=== PATIENT | male | born 1945 | race Caucasian/White ===

== ENCOUNTER → 2023-04-13 | Outpatient (CLI) | payer OTHER, SELFPAY ==
--- NOTE | 2023-04-13 07:43 | CT_ITS ---
STUDY: CT SCAN OF THE ABDOMEN WITHOUT ORAL OR INTRAVENOUS CONTRAST. REASON FOR EXAM: Male, 77 years old. MASS IN PANCREAS RADIATION DOSAGE (If Supplied By Facility): CTDIvol = ( 28.34 ) mGy, DLP = ( 746.12 ) mGycm. Individualized dose optimization techniques were used for this CT.? TECHNIQUE: The patient was placed in the prone position. Due to the position of the mass in the tail the pancreas, access was not made possible due to overlying lung tissue. Lateral approach was planned although there is evidence of the descending colon. CT/Biopsy/Inj or Needle Placement IMPRESSION: The procedure was not performed due to the lack of safe access to the abnormality. Electronically Signed: Kris Will MD at 11:16 EST ,
--- OUTSIDE RECORDS SUMMARY | 2023-04-13 07:43 | XMS RPT_ITS | CCD ---
Author Name Unknown Address [address] [place] [address] Organization [facility] Care Team Providers [employer] Name Role Phone Marielena KNIGHT MD Unavailable BERLIN Unavailable Unavailable ANJU CABAN, LUIS ALFREDO Díaz Unavailable DERMATOLOGY, GENERAL Unavailable Unavailable Debora RN, Lucia Unavailable Unavailable ANJU CABAN, CALEB De Jesus Unavailable [phone] REGAN CAI Unavailable Unavailable MEI CABAN, STEFAN Tinoco Unavailable [phone] STAN GREGORIO-CIRINEO Unavailable [phone] Larissa BAILEY MD Unavailable PIA KNIGHT Unavailable Unavailable Taylor Del Castillo Unavailable Unavailable Sil Mclain Unavailable Unavailable Aman DAVIS, Aminta Unavailable Unavaila JAQUELINE Flores Unavailable Unavailable Unavailable Unavailable IRINEO PIERCE NP Consulting Unavailab le IRINEO PIERCE NP Primary Care Unavailab IRINEO Rod NP Admitting Unavailab le IRINEO PIERCE FORESTRY EXTENSION SPECIALIST Attending Unavailab le PROVIDER, UNKNOWN Consulting Unavailable PROVIDER, UNKNOWN Consulting Unavailable GORDON KNIGHT MD Consulting Unavailable IRINEO PIERCE NP Primary Care Unavailab IRINEO Rod NP Admitting Unavailab IRINEO Rod NP Attending Unavailab le PROVIDER, UNKNOWN Consulting Unavailable PROVIDER, UNKNOWN Consulting Unavailable PROVIDER, UNKNOWN Consulting Unavailable TU RIOS MD Attending Unavailable TU RIOS MD Primary Care Unavailable TU RIOS MD Admitting Unavailable IRINEO PIERCE FORESTRY EXTENSION SPECIALIST Consulting Unavailab le PROVIDER, UNKNOWN Consulting Unavailable PROVIDER, UNKNOWN Consulting Unavailable IRINEO PIERCE NP Primary Care Unavailab le STAN, IRINEO WOO Admitting Unavailab le STAN, IRINEO FORESTRY EXTENSION SPECIALIST Attending Unavailab le STAN, IRINEO FORESTRY EXTENSION SPECIALIST Consulting Unavailab le PROVIDER, UNKNOWN Consulting Unavailable PROVIDER, UNKNOWN Consulting Unavailable STAN, IRINEO WOO Primary Care Unavailab simran CAMILOAPRILCANDY, IRINEO FORESTRY EXTENSION SPECIALIST Admitting Unavailab le STAN, IRINEO FORESTRY EXTENSION SPECIALIST Attending Unavailab le CAMILOTECANDY, IRINEO FORESTRY EXTENSION SPECIALIST Consulting Unavailab le PROVIDER, UNKNOWN Consulting Unavailable PROVIDER, UNKNOWN Consulting Unavailable [facility] Attending Unavailable [facility] Primary Care Unavailable [facility] Admitting Unavailable GORDON KNIGHT MD Consulting Unavailable PROVIDER, UNKNOWN Consulting Unavailable PROVIDER, UNKNOWN Consulting Unavailable PROVIDER, UNKNOWN Consulting Unavailable LICO REED DO Unavailable TAYLOR DEL CASTILLO Unavailable Unavailable Medications Current Medications Medication Drug Class(es) Dates Sig (Normalized) Sig (Original) lisinopril 5 mg oral tablet (14 sources) Angiotensin Converting Enzyme Inhibitor Start: 03-28-2023 lisinopriL 5 mg tablet ; 1 (one) tablet daily for 30 days Quantity: 30 {Tablet} Refills: 3 Ordered: 28-Mar-2023 DULCE PIERCE Start: 28-Mar-2023 Completed/Discontinued Medications Medication Drug Class(es) Dates Sig (Normalized) Sig (Original) acetaminophen 500 mg / HYDROcodone bitartrate 5 mg oral tablet (14 sources) Opioid Agonist Start: 11-05-2010 End: 06-18-2013 take 1 tablet by mouth every six hours as needed VICODIN, 5-500MG (Oral Tablet) ; 1 (one) Tablet every six hours, as needed for 0 days Quantity: 25 {Tablet} Refills: 1 Ordered: 18-Jun-2013 MD LUIS ALFREDO RENE Start: 05-Nov-2010 End: 18-Jun-2013 Status: Discontinued Comments: Medication taken as needed. This order discontinued per -Span. 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 The test(s) that you had done were/was blood work and a PSA (blood test for prostate cancer). Your tests were not to goal You should call our office if you have any questions. Please follow up as scheduled. Note for !Patient notification of lab results : Your PSA was elevated. We can have you see a specialist for this or start you on medications. Also, your blood sugar was dangerously high at over 400. Start working on the diet and take your medication. In addition, your kidney function has declined. We will watch this closely. Thanks! 11-29-2022 Unclassified (14 sources) !Patient notification of lab results - Dr. Knight. Note for !Patient notification of lab results : Cheng, all your tests (including the 24 hour heart monitor results that I just got back) don't show any reason for your shortness of breath. Your heart monitor did show some extra beats, but that is not unusual at your age and shouldn't cause shortness of breath.If you are feeling better, or at least not worse, we can watch and see you do. If you are getting any worse though, the next thing I would do is pulmonary function test. That doesn't just see what your lungs look like (which is what the xray did), but how your lungs are actually working. It isn't a major test, so if you have any doubt let me know and we can schedule that.Let us know if you have any questions. 10-28-2020 Unclassified (14 sources) Cold Symptoms - Symptoms include productive cough, while symptoms do not include sore throat. Onset was gradual 3 day(s) ago. Associated symptoms include shortness of breath, while associated symptoms do not include plugged ear(s), ear pain or fever. 03-19-2016 Unclassified (14 sources) Diarrhea - The onset of the diarrhea has been sudden and has been occurring for 3 days. The course has been constant. The stools are watery and foul smelling. The symptoms have been associated with abdominal pain, joint pains, nausea, past history of abdominal surgery (Gallbladder and Kidney removal 2012) and weakness. Note for Diarrhea : 10 x/day 11-26-2015 Unclassified (14 sources) !Patient notification of lab results 1 - Kornhaus. The test(s) that you had done were/was blood work (Your potassium was slightly elevated at 5.1. Your kidney function is diminished but stable when compared to 07/2013. You should schedule a follow up in the next 6 weeks to further review your kidney situation and to decide if you should see a specialist for a consult regarding this. The lymphocyte count was slightly low. These are cells that help fight viral infections. They were not so low that I am concerned that you will have a problem with infection, but the count should be repeated in 3 months to be certain that it is stable). You should call our office if you have any questions. 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 Patient has tried multiple over the counter treatments and a couple prescription medications. Rash is red and itchy and is located on his both of his arms, legs, abdomen, and back. Here for exam. 03-08-2014 Unclassified (14 sources) !Patient notification of lab results 1 - Rene. The test(s) that you had done were/was a CBC (checks for anemia and infection) and a CMP (kidneys, liver, nutrition, sugar). The results of your testing were normal (Hopefully you are feeling better in the next few days. Let us know if you don't think there is any improvement.) . You should call our office if you have any questions. 07-20-2013 Unclassified (14 sources) Rash - The rash has been occurring for 4 weeks. The rash is characterized as red. The rash was first seen on the lower extremity. It spread to the upper extremity. There has been associated itching. Note for Rash : Seen on 06/18/13, given Lotrimin, no improvement. 07-19-2013 Unclassified (10 sources) Rash - The onset of the rash has been acute and has been occurring in a persistent pattern for weeks. The course has been increasing. The rash is characterized as red. The rash was first seen on the lower extremity (left ). It spread to the trunk, the back, the upper extremity and the lower extremity. There has been associated itching. 06-18-2013 Unclassified (10 sources) [ADDITIONAL REASON] cough - The onset of the cough has been acute and has been occurring in a persistent pattern for 4 days. The symptoms have been associated with wheezing. 06-18-2013 Unclassified (14 sources) Pre-Op Visit - The procedure scheduled is a Right Total Knee Replacement on 02/09/2011. The surgeon for the procedure will be Dr Mejia. Note for Pre-Op Visit : had bloodwork drawn per Dr Mejia on 12/23/2010 01-26-2011 Unclassified (14 sources) !Patient notification of lab results 1 - Dr. Rene. The test(s) that you had done were/was a panel of joint inflammation tests. The results of your testing were normal . Please note that we have included copies of your results and be aware that we have sent copies to Dr keven Mejia, clinical account specialist at [facility]. 12-25-2010 Unclassified (14 sources) Unspecified Diagnosis 11-05-2010 Unclassified (14 sources) Knee Pain - The onset of the knee pain has been acute and has been occurring for years. The knee pain is described as being located in the entire knee (RIGHT). Note for Knee Pain : C/O TINGLING IN BOTH FEET. SAW DR NOLBERTO KNIGHT SEVERAL YEARS AGO. ALSO HAD [address] INJECTIONS REC[address] ZAMARRIPA FROM [facility]. 2 HR PP GLUCOSE 134. FAMILY HX OF DIABETES.. 11-05-2010 Unclassified (10 sources) Follow-up after Hospitalization - The diagnosis of UTI. The patient reports feeling feels well with no complaints. The date of admission was 03-13-23 and date of discharge was 03-15-23. The hospitalization was at [facility]. New medicaitons include: bactrim and tamsulosin.. Discontinued medications include: metformin. Note for Follow-up after Hospitalization : pt was told to stop metformin due to pt having 1 kidney. Told to watch sugar in his diet. Pt checks sugars at home and has readings of 200+ the last couple days. Has not taken lisinopril x 1 day either. 03-18-2023 Unclassified (10 sources) [ADDITIONAL REASON] Transition into care - The patient is transitioning into care from a hospital and a summary of care was reviewed. 03-18-2023 Unclassified (4 sources) cough - The onset of the cough has been acute and has been occurring in a persistent pattern for 4 days. The symptoms have been associated with wheezing. 06-18-2013 Unclassified (4 sources) [ADDITIONAL REASON] Rash - The onset of the rash has been acute and has been occurring in a persistent pattern for weeks. The course has been increasing. The rash is characterized as red. The rash was first seen on the lower extremity (left ). It spread to the trunk, the back, the upper extremity and the lower extremity. There has been associated itching. 06-18-2013 Results Test Name Value Interpretation Reference Range Facil ity Vital Signs Date Time Vital Sign Value Performing Clinician Faci lity 03-18-2023 13:57-0500 Body height 166.37 cm Aminta Newton RN [facility] [employer] [facility] [place], [facility]. 03-18-2023 13:57-0500 Body mass index (BMI) [Ratio] 31.96 kg/m2 Aminta Newton RN [facility] [employer] [facility] [place]. 03-18-2023 13:57-0500 Body surface area Derived from formula 1.97 m2 Aminta Newton RN [facility] [employer] [facility] [place], [employer] [facility] [employer] [facility] [place], [facility]. 03-18-2023 13:57-0500 Body temperature 97.5 [degF] Aminta Newton RN [facility] [employer] [facility] [place].; [facility] [employer] [facility] [place], [employer] Encounters Encounter Date Encounter Type Care Provider Facility Start: 04-04-2023 End: 04-04-2023 Procedure Order Marielena KNIGHT MD Work Phone: [facility] [employer] [facility] Start: 04-04-2023 End: 04-04-2023 Historical Summary Marielena KNIGHT MD Work Phone: [facility] [employer] [facility] [place]. Start: 03-29-2023 End: 03-29-2023 ambulatory IRINEO PIERCE [facility] Start: 03-28-2023 End: 03-28-2023 Procedure Order [facility]iel[facility]NIGHT [facility] [place] Start: 03-18-2023 End: 03-18-2023 Office outpatient visit 10 minutes Marielena KNIGHT MD Work Phone: [facility] [employer] [facility] [place]. Start: 03-18-2023 End: 03-18-2023 Procedure Order [facility]iel[facility] Start: 03-17-2023 End: 03-17-2023 Historical Summary [facility]iel[facility]NIGHT MD [facility] Start: 03-13-2023 End: 03-15-[facility] Start: 11-29-2022 End: 11-29-2022 Follow-up encounter Marielena KNIGHT MD Work Phone: [facility] [employer] [facility] [place] Start: 11-26-2022 End: 11-26-2022 ambulatory GORDON KNIGHT [facility] Start: 11-26-2022 End: 11-26-2022 Office outpatient visit 10 minutes Marielena KNIGHT MD Work Phone: [facility] [employer] [facility] [place] Start: 11-03-2022 End: 11-03-2022 [facility] Start: 10-28-2020 End: 10-28-2020 Results Review Marielena KNIGHT MD [facility] Start: 10-15-2020 End: 10-15-2020 Historical Summary Marielena KNIGHT MD [email or web address] Start: 10-11-2020 End: 10-12-2020 Results Review Marielena KNIGHT MD Work Phone: [facility] [employer]. Start: 10-10-2020 End: 10-10-2020 Office outpatient visit 25 minutes Marileena KNIGHT MD Work Phone: [place] [employer] [facility] [employer]. Start: 01-05-2020 End: 01-05-2020 Results Review Marielena KNIGHT MD Work Phone: [facility] [employer]. Start: 01-04-2020 End: 01-04-2020 Office outpatient visit 10 minutes Marielena KNIGHT MD Work Phone: [facility] [employer]. Start: 08-02-2019 End: 08-02-2019 Historical Summary Marielena KNIGHT MD Work Phone: [facility] [employer]. Start: 07-07-2019 End: 07-07-2019 Results Review Marielena KNIGHT MD Work Phone: [place] [employer] [facility] [employer]. Start: 07-06-2019 End: 07-06-2019 Office outpatient visit 10 minutes Marielena KNIGHT MD Work Phone: [facility] [employer]. Start: 01-06-2019 End: 01-06-2019 Results Review Marielena KNIGHT MD Work Phone: [place] [employer] [facility] [employer]. Start: 01-05-2019 End: 01-05-2019 Medication Refill/Order Marielena KNIGHT MD Work Phone: [facility] [employer]. Start: 01-05-2019 End: 01-05-2019 Office outpatient visit 15 minutes Marielena KNIGHT MD Work Phone: [place] [employer] [facility] [employer]. Start: 10-03-2018 End: 10-03-2018 Medication Refill/Order Marielena KNIGHT MD Work Phone: [facility] [employer]. Start: 10-03-2018 End: 10-03-2018 Office outpatient visit 15 minutes Marielena KNIGHT MD Work Phone: [facility] Start: 09-04-2018 End: 09-04-2018 Follow-up encounter Marielena KNIGHT MD Work Phone: [facility]. Start: 09-01-2018 End: 09-01-2018 Lab Only Marielena KNIGHT MD Work Phone: [facility] [employer]. Start: 09-01-2018 End: 09-01-2018 Office outpatient visit 25 minutes Marielena KNIGHT MD Work Phone: [facility] [employer]. Start: 09-01-2018 End: 09-01-2018 Physical examination Marielena KNIGHT MD Work Phone: [facility] [place] [employer] [facility] [employer]. Start: 01-28-2017 End: 01-28-2017 Office outpatient visit 15 minutes Marielena KNIGHT MD Work Phone: [place] [employer] [facility] [employer] Start: 01-01-2017 End: 01-04-2017 Results Review Marielena KNIGHT MD Work Phone: [place] [employer] [email or web address] Start: 12-31-2016 End: 12-31-2016 Office outpatient visit 15 minutes Marielena KNIGHT MD Work Phone: [place] [employer] [facility] [employer]. Start: 03-19-2016 End: 03-19-2016 Office outpatient visit 10 minutes Marielena KNIGHT MD Work Phone: [place] [employer] [facility] [employer]. Start: 11-26-2015 End: 11-26-2015 Office outpatient visit 15 minutes Marielena KNIGHT MD Work Phone: [place] [employer] [facility] [employer] Start: 12-30-2014 End: 12-30-2014 Results Review Marielena KNIGHT MD Work Phone: [place] [employer] [facility] [employer] Start: 12-27-2014 End: 12-27-2014 Office outpatient visit 25 minutes Marielena KNIGHT MD Work Phone: [place] [employer] [facility] [employer]. Start: 12-27-2014 End: 12-27-2014 Preprocedural examination done Marielena KNIGHT MD Work Phone: [facility] [employer] [facility] [employer]. Start: 10-07-2014 End: 10-07-2014 Office outpatient visit 10 minutes Marielena KNIGHT MD Work Phone: [place] [employer] [facility] [employer]. Start: 03-14-2014 End: 03-14-2014 Office outpatient visit 15 minutes Marielena KNIGHT MD Work Phone: [place] [employer] [facility]. Start: 03-09-2014 End: 03-09-2014 Lab Only Marielena KNIGHT MD Work Phone: [place] [employer] [facility]. Start: 03-08-2014 End: 03-08-2014 Office outpatient visit 15 minutes Marielena KNIGHT MD Work Phone: [place] [employer] [facility] [employer]. Start: 07-20-2013 End: 07-20-2013 Nutrition therapy Marielena KNIGHT MD Work Phone: [place] [employer] [facility]. Start: 07-19-2013 End: 07-19-2013 Patient encounter procedure Marielena KNIGHT MD Work Phone: [place] [employer] [facility]. Start: 06-18-2013 End: 06-18-2013 Patient encounter procedure Marielena KNIGHT MD Work Phone: [place] [employer] [facility] [employer]. Start: 06-19-2012 End: 06-19-2012 Historical Summary Marielena KNIGHT MD Work Phone: [facility] [employer] Start: 01-26-2011 End: 01-26-2011 Patient encounter procedure Marielena KNIGHT MD Work Phone: [place] [employer] [facility] [employer]. Start: 01-26-2011 End: 01-26-2011 Pre-operative examination, unspecified Marielena KNIGHT MD Work Phone: [employer]; [employer]. Start: 12-25-2010 End: 12-25-2010 Results Review Marielena KNIGHT MD Work Phone: [place] [employer] Start: 12-23-2010 End: 12-23-2010 Lab Only Marielena KNIGHT MD Work Phone: [employer] Start: 11-05-2010 End: 11-05-2010 Patient encounter procedure Marielena KNIGHT MD Work Phone: [employer] Procedures Date Procedure Procedure Detail Performing Clinician Start: 03-30-2023 End: 03-30-2023 Radiologic examination eye detect foreign body IRINEO PIERCE [employer] Work Phone: Start: 03-18-2023 End: 03-18-2023 Dischrg meds reconciled w/current med list IRINEO PIERCE HEATING MECHANIC-C Work Phone: Start: 11-26-2022 PSA screening IRINEO Ch OFSTETTELarissa Plan of Treatment Date Care Activity Detail Author Start: 04-04-2023 Ct guidance needle placement CT BIOPSY PANCREAS (31656) Start: 04-Apr-2023 Intent [employer]. Start: 03-28-2023 Mri abdomen w/o contrast material MRI ABDOMEN, WITHOUT CONTRAST ([id number]) Start: 28-Mar-2023 Intent [employer] [place] [employer]OMBA SHOSHONE - [employer]. Start: 03-18-2023 Basic metabolic panel calcium total BMP ([id number]) Start: 18-Mar-2023 14:53 Request [employer]. Start: 03-18-2023 Follow-up encounter Medical; HOSPITAL FOLLOW UP - [facility] d/c 03/14 uti [place] [employer]. Start: 18-Mar-2023 14:00 DULCE PIERCE Appointment Request [facility] [employer] [facility] [place] Start: 03-18-2023 Mri abdomen w/o & w/contrast material MRI ABDOMEN WITH AND WITHOUT CONTRAST ([id number]) Start: 18-Mar-2023 [facility] [employer]; [place] [employer] [facility] [employer]. Start: 03-18-2023 Radiologic examination eye detect foreign body X-RAY ORBIT FOR FOREIGN BODY ([id number]) Start: 18-Mar-2023 [facility] [employer]; [place] [employer] [facility] [employer]. Start: 10-10-2020 Cv strs tst xers&/or rx cont ecg w/si&r CARDIOVASCULAR EXERCISE STRESS TEST - WITH IMAGING (32868) ([id number]) Start: 10-Oct-2020 [facility] [employer]; [place] [employer] [facility] [employer]. Start: 10-10-2020 External ecg scanning analysis report HOLTER MONITOR WITH REPORT, 24 HRS ([id number]) Start: 10-Oct-2020 [facility] [employer]; [employer] [facility] [employer]. Start: 10-10-2020 Radiologic exam chest 2 views CHEST XRAY, PA & LATERAL ([id number]) Start: 10-Oct-2020 [facility] [employer]; [place] [employer] [facility] [employer]. Start: 10-03-2018 Patient Education [facility] [employer]; [facility] [employer] Start: 09-01-2018 Collj & interpj physiol data min 30 min ea 30 d QUERY OARRS REPORT ([id number]) Start: 01-Sep-2018 [facility] [employer]; [employer] [facility] [employer]. Start: 11-26-2015 Iv infusion hydration initial 31 min-1 hour IV INFUSION, INIT ([id number]) Start: 26-Nov-2015 [facility] [employer]; [place] [employer] [facility] [employer]. Start: 11-26-2015 Patient Education VIRAL GASTROENTERITIS Indication: Gastroenteritis, Acute (Renamed from Acute gastroenteritis) Start: 26-Nov-2015 Instruction Type: Patient Education [facility] [employer] [facility] [place]; [facility] Start: 11-26-2015 Ringers lactate infusion RINGERS LACTATE INFUSION, UP TO 1000 CC (Special coverage instructions apply. See MCM: 2049) ([id number]) Start: 26-Nov-2015 Intent Comments: D5LR [facility] [employer] [facility] [place]; [facility] [employer] [facility] [place] Work Phone: Immunizations Immunization Date Immunization Notes Care Provider Fa cility influenza virus vaccine, unspecified formulation Marielena KNIGHT MD Work Phone: [facility] [employer] [facility] [place]; [facility] Payers Date Payer Category Payer Unknown [id number] [id number] [id number] 1945 Unknown [id number] 2.16.8 [id number] 1945 Unknown [id number] 2.16.8 [id number] 1945 Unknown [id number] 2.16.8 [id number] Unknown Unknown [id number] Social History Date Type Detail Facility Alcohol Use: Alcohol Use: ; N o Alcohol Use. [facility] [employer] [facility]; [facility] Highest Education Le smooth Attained: Highest Education Level Attained: ; Less than high school. [facility] [employer] [facility] [place]; [facility] Most Recent Primary Occupation Most Recent Primary Occupation [facility] [employer] [facility] [place]; [facility] Tobacco use: Tobacco use: ; F ormer smoker. [facility] [employer] [facility] [place]; [facility]; [facility] Work Phone: Never smoked tobacco [facility]; [facility] Work Phone: Less than high school [facility]. Work Phone: Ex-smoker [facility] Work Phone: Summary Purpose Family History Brother (s) Status:Active Comments:Breast Cancer. In good health. occurred in his 60s Father Status:Active Comments: d. Cancer. age 54 Mother Status:Active Comments: d. Diabetes mellitus, Type II. age 85 Sister (s) Status:Active Comments:In good health. Diabetes mellitus, Type II. x2 Brother (s) Status:Active Comments:Breast Cancer. In good health. occurred in his 60s Father Status:Active Comments: d. Cancer. age 54 Mother Status:Active Comments: d. Diabetes mellitus, Type II. age 85 Sister (s) Status:Active Comments:In good health. Diabetes mellitus, Type II. x2 Brother (s) Status:Active Comments:Breast Cancer. In good health. occurred in his 60s Father Status:Active Comments: d. Cancer. age 54 Mother Status:Active Comments: d. Diabetes mellitus, Type II. age 85 Sister (s) Status:Active Comments:In good health. Diabetes mellitus, Type II. x2 Brother (s) Status:Active Comments:Breast Cancer. In good health. occurred in his 60s Father Status:Active Comments: d. Cancer. age 54 Mother Status:Active Comments: d. Diabetes mellitus, Type II. age 85 Sister (s) Status:Active Comments:In good health. Diabetes mellitus, Type II. x2 Brother (s) Status:Active Comments:Breast Cancer. In good health. occurred in his 60s Father Status:Active Comments: d. Cancer. age 54 Mother Status:Active Comments: d. Diabetes mellitus, Type II. age 85 Sister (s) Status:Active Comments:In good health. Diabetes mellitus, Type II. x2 Brother (s) Status:Active Comments:Breast Cancer. In good health. occurred in his 60s Father Status:Active Comments: d. Cancer. age 54 Mother Status:Active Comments: d. Diabetes mellitus, Type II. age 85 Sister (s) Status:Active Comments:In good health. Diabetes mellitus, Type II. x2 Brother (s) Status:Active Comments:Breast Cancer. In good health. occurred in his 60s Father Status:Active Comments: d. Cancer. age 54 Mother Status:Active Comments: d. Diabetes mellitus, Type II. age 85 Sister (s) Status:Active Comments:In good health. Diabetes mellitus, Type II. x2 Brother (s) Status:Active Comments:Breast Cancer. In good health. occurred in his 60s Father Status:Active Comments: d. Cancer. age 54 Mother Status:Active Comments: d. Diabetes mellitus, Type II. age 85 Sister (s) Status:Active Comments:In good health. Diabetes mellitus, Type II. x2 Brother (s) Status:Active Comments:Breast Cancer. In good health. occurred in his 60s Father Status:Active Comments: d. Cancer. age 54 Mother Status:Active Comments: d. Diabetes mellitus, Type II. age 85 Sister (s) Status:Active Comments:In good health. Diabetes mellitus, Type II. x2 Brother (s) Status:Active Comments:Breast Cancer. In good health. occurred in his 60s Father Status:Active Comments: d. Cancer. age 54 Mother Status:Active Comments: d. Diabetes mellitus, Type II. age 85 Sister (s) Status:Active Comments:In good health. Diabetes mellitus, Type II. x2 Brother (s) Status:Active Comments:Breast Cancer. In good health. occurred in his 60s Father Status:Active Comments: d. Cancer. age 54 Mother Status:Active Comments: d. Diabetes mellitus, Type II. age 85 Sister (s) Status:Active Comments:In good health. Diabetes mellitus, Type II. x2 Brother (s) Status:Active Comments:Breast Cancer. In good health. occurred in his 60s Father Status:Active Comments: d. Cancer. age 54 Mother Status:Active Comments: d. Diabetes mellitus, Type II. age 85 Sister (s) Status:Active Comments:In good health. Diabetes mellitus, Type II. x2 Brother (s) Status:Active Comments:Breast Cancer. In good health. occurred in his 60s Father Status:Active Comments: d. Cancer. age 54 Mother Status:Active Comments: d. Diabetes mellitus, Type II. age 85 Sister (s) Status:Active Comments:In good health. Diabetes mellitus, Type II. x2 Brother (s) Status:Active Comments:Breast Cancer. In good health. occurred in his 60s Father Status:Active Comments: d. Cancer. age 54 Mother Status:Active Comments: d. Diabetes mellitus, Type II. age 85 Sister (s) Status:Active Comments:In good health. Diabetes mellitus, Type II. x2 Advance Directives No Advanced Directives Records FoundNo Advanced Directives Records FoundNo Advanced Directives Records Found Additional Source Comments (unrecognized sect ion and content) No Status Records FoundNo Status Records FoundNo Status Records Found INFORMATION SOURCE (unrecogn ized section and content) DATE CREATED AUTHOR AUTHOR'S ORGANIZ ATION 10/12/2020 [facility] ([place]) DATE CREATED AUTHOR AUTHOR'S ORGANIZ ATION 04/01/2023 [facility] FOR RECORDS PERTAINING TO PATIENTS WHO ARE OR HAVE BEEN ENROLLED IN A CHEMICAL DEPENDENCY/SUBSTANCEABUSE PROGRAM, SOME INFORMATION MAY BE OMITTED. This clinical summary was aggregated from multiple sources. Caution should be exercised in using it in the provision of clinical care. This summary normalizes information from multiple sources, and as a consequence, information in this document may materially change the coding, format and clinical context of patient data. In addition, data may be omitted in some cases. CLINICAL DECISIONS SHOULD BE BASED ON THE PRIMARY CLINICAL RECORDS. [employer]. provides no warranty or guarantee of the accuracy or completeness of information in this document.
[2023-04-13 07:49] LABS: Platelet Count 265 K/mm3 (150-450)
[2023-04-13 08:19] LABS: Partial Thromboplast Time 25.8 Seconds (24.1-36.2); Prothrombin Time (Protime)PT. 12.8 SECONDS (11.7-14.9)
[2023-04-13 08:45] VITALS: BP 144/75; PULSE 74; RESP 14; TEMP 36.6; O2SAT 97; BMI 31.6
== END | disposition home or self-care (01) ==
LOC: CT 07:37
PROVIDERS: Nurse Practitioner Acute Care; PCP Nurse Practitioner Family; Referring Provider Family Medicine; Visit Provider Family Medicine
DX: K86.89 Other specified diseases of pancreas (principal)
CPT/HCPCS: 36415; 77012; 85049; 85610; 85730; J7050

== ENCOUNTER → 2023-10-03 | Outpatient (CLI) | payer OTHER, SELFPAY ==
--- NOTE | 2023-10-03 | IMM_PTH ---
PATIENT: CHENG OSBORN LOC: [facility] U#:[id number] AGE/SX: 77/M ROOM: RE10/03/[address]: Dr. Jaden Beckford MD : 1945 BED: DIS: 10/03/2023 SPEC #: [id number] RECD: 10/05/23 09:55 STATUS: BARRON REQ #: [id number] MARILUZ: 10/03/23 00:[address]: Jaden Beckford DEPT: IMMUNOHISTOCHEMISTRY RECD BY: Mitesh Stoll ENTERED: 10/05/23 09:55 SP TYPE: IMMUNO OTHR DR: Lurdes Galindo, DESK MANAGER-C Tissues: B - PROSTATE RIGHT C - PROSTATE RIGHT D - PROSTATE LEFT Procedures: 34BE12 (add) P40 (add) P40 (initial) PHYSICIAN & INSTITUTION [place] [id number] SPECIMEN INFORMATION: Tissue Source: B- Right mid prostate, C- Right base prostate, D- Left apex prostate Clinical Info: Elevated PSA Specimen Number: [id number] B, C, D CPT code: 30246,55578d0 METHODOLOGY: Deparaffinized sections of prefer/formalin-fixed tissue or PAP/DQ stained slides are incubated with monoclonal/polyclonal antibodies/oligonucleotide probes. Localization is made via biotin free immunoperoxidase method. Appropriate controls are performed and reacted as expected. Results on target cell population are indicated in the following table: RESULTS: ANTIBODY / CLONE RESULT Block B P40 (BC28) negative 34BE12 (34BE12) negative Block C P40 (BC28) negative 34BE12 (34BE12) negative Block D P40 (BC28) positive 34BE12 (34BE12) positive These tests were developed and their performance characteristics determined by [facility]. They may not have been cleared or approved by the U.S. Food and Drug Administration. The FDA has determined that such clearance or approval is not necessary. The above immunohistochemical/dualISH markers are ordered and reviewed by the Pathologist. INTERPRETATION: B. Prostate, right mid, core biopsy: Adenocarcinoma. C. Prostate, right base, core biopsy: Adenocarcinoma. D. Prostate, left apex, core biopsy: Negative for malignancy. PATRICIA/ 10/06/2023
--- NOTE | 2023-10-03 13:00 | PROSBIL_PTH ---
PATIENT: CHENG OSBORN LOC: [facility] U#:[id number] AGE/SX: 77/M ROOM: RE10/03/[address]: Dr. Jaden Beckford MD : 1945 BED: DIS: 10/03/2023 SPEC #: [id number] RECD: 10/03/23 15:00 STATUS: BARRON TRISTA #: [id number] MARILUZ: 10/03/23 13:[address]: Jaden Beckford DEPT: SURGICAL PATHOLOGY RECD BY: Prabha Padgett ENTERED: 10/04/23 07:09 SP TYPE: PROST BX ROSALVA DR: Lurdes Galindo, KAYLEEN Tissues: A - PROSTATE RIGHT B - PROSTATE RIGHT C - PROSTATE RIGHT D - PROSTATE LEFT E - PROSTATE LEFT F - PROSTATE LEFT Procedures: PROSTATE BX HEADER OPERATION: Prostate biopsy PRE-OP DIAGNOSIS: Elevated PSA TISSUE SUBMITTED: A - Right apex, B - Right mid, C - Right base, D - Left apex, E - Left mid, F - Left base MICROSCOPIC DIAGNOSIS A. Right prostate, apex, core biopsy: Prostatic adenocarcinoma. Ahmet grade: 3+4=7 Number of cores involved: 1/1 Proportion of tissue involved: ~50 % Perineural invasion: Not identified. Greatest tumor length: 0.5 cm Chronic inflammation. B. Right prostate, mid, core biopsy: Prostatic adenocarcinoma. Ahmet grade: 3+4=7 Number of cores involved: 1/1 Proportion of tissue involved: ~25-30% Perineural invasion: Not identified. 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 Moderate to marked chronic inflammation and suggestive of granuloma formation. See comment. C. Right prostate, base, core biopsy: Prostatic adenocarcinoma. Ahmet grade: 3+4=7 Number of cores involved: 1/1 Proportion of tissue involved: ~25% Perineural invasion: Not identified. Greatest tumor length: 0.2 cm Moderate to marked chronic inflammation and focal necrotizing granuloma inflammation. See comment. D. Left prostate, apex, core biopsy: Prostatic tissue, negative for malignancy. Moderate chronic inflammation and suggestive of granuloma formation. See comment. E. Left prostate, mid, core biopsy: Prostatic tissue, negative for malignancy. Moderate to marked chronic inflammation and focal necrotizing granuloma inflammation. See comment. F. Left prostate, base, core biopsy: Prostatic tissue, negative for malignancy. Moderate to marked chronic inflammation and suggestive of granuloma formation. . 10/05/2023 COMMENT B & D. Immunohistochemistry ([id number]) supports the above diagnosis. C. Special stains for acid fast bacilli and fungi are negative for organisms; matched controls are appropriate. Immunohistochemistry ([id number]) supports the above diagnosis. E. Special stains for acid fast bacilli and fungi are negative for organisms; matched controls are appropriate. Case has been reviewed in consultation with Dr. Treadwell who concurs with the above diagnosis. IDC:AM MICROSCOPIC DESCRIPTION Slides are reviewed. GROSS DESCRIPTION A - Received is one container designated prostate, right apex. The specimen consists of one elongated fragments of light soares-white soft tissue measuring 1.2 cm in length and 0.1 cm in diameter. The specimen is totally submitted in one cassette. B - Received is one container designated prostate, right mid. The specimen consists of one elongated fragments of light soares-white soft tissue measuring 1.2 cm in length and 0.1 cm in diameter. The specimen is totally submitted in one cassette. C - Received is one container designated prostate, right base. The specimen consists of one elongated fragments of light soares-white soft tissue measuring 0.8 cm in length and 0.1 cm in diameter. The specimen is totally submitted in one cassette. D - Received is one container designated prostate, left apex. The specimen consists of one elongated fragments of light soares-white soft tissue measuring 1.5 cm in length and 0.1 cm in diameter. The specimen is totally submitted in one cassette. E - Received is one container designated prostate, left mid. The specimen consists of one elongated fragments of light soares-white soft tissue measuring 1.0 cm in length and 0.1 cm in diameter. The specimen is totally submitted in one cassette. F - Received is one container designated prostate, left base. The specimen consists of one elongated fragments of light soares-white soft tissue measuring 1.3 cm in length and 0.1 cm in diameter. The specimen is totally submitted in one cassette. / PATRICIA/ 10/04/2023 TC:0 CPT: 68601 x6, 16543 x4
== END | disposition home or self-care (01) ==
LOC: LABSPEC 16:14
PROVIDERS: PCP Nurse Practitioner Family; Referring Provider Urology; Visit Provider Urology
DX: R97.20 Elevated prostate specific antigen [PSA] (principal)
CPT/HCPCS: 88305; 88341; 88342; G0416

== ENCOUNTER → 2023-11-09 | Outpatient (CLI) | payer SELFPAY, OTHER ==
--- NOTE | 2023-11-09 08:00 | CT_ITS ---
STUDY: CT ABDOMEN AND PELVIS WITHOUT CONTRAST REASON FOR EXAM: Male, 77 years old. Malignant neoplasm of prostate. Prior nephrectomy. RADIATION DOSAGE (If Supplied By Facility): CTDIvol = ( 18.61 ) mGy, DLP = ( 962.59 ) mGycm TECHNIQUE: Transaxial images were obtained from the dome of the diaphragm to the symphysis pubis without oral contrast, and without intravenous contrast. Sagittal and coronal images were reconstructed. Individualized dose optimization techniques were used for this CT. COMPARISON: None. FINDINGS: Minimal increased linear markings at the lung bases suggestive of linear scarring. Coronary artery calcification. Normal liver. There are surgical clips in the gallbladder fossa consistent with a prior cholecystectomy. Normal spleen. Normal pancreas. Normal bilateral adrenal glands. The patient is status post right nephrectomy and right adrenalectomy. Normal left kidney. Normal visualized stomach. Normal small intestine. There are multiple colonic diverticula consistent with diverticulosis. The appendix is visualized and appears normal. There is scattered atherosclerotic calcification of the abdominal aorta, without a demonstrated aneurysm. Normal inferior vena cava. Normal retroperitoneum. Normal urinary bladder. The prostate measures 3.6 cm x 4.6 cm. Normal abdominal wall. There are scattered degenerative changes of the visualized lumbar spine. CT/Abdomen/Pelvis without Cont IMPRESSION: Sigmoid diverticulosis. Status post cholecystectomy. Status post right nephrectomy and adrenalectomy. Electronically Signed: Kris Will MD at 14:47 EDT ,
== END | disposition home or self-care (01) ==
PROVIDERS: PCP Nurse Practitioner Family; Referring Provider Urology; Visit Provider Urology
DX: Z01.812 Encounter for preprocedural laboratory examination (principal); C61 Malignant neoplasm of prostate; R97.20 Elevated prostate specific antigen [PSA]
CPT/HCPCS: 74176